=== PATIENT | male | born 1970 | race Caucasian/White ===

== ENCOUNTER 2022-06-14 07:05 | Day surgery (SDC) | payer OTHER ==
[~2022-06-14 07:05] MED LIST: Dextrose 5%-0.45% NaCl 1,000 ML IV SCH; Midazolam 1 MG/ML 2 ML SDV ONE; Sodium Chloride 0.9% 10 ML Syringe FLUSH PRN; Sodium Chloride 0.9% 10 ML Syringe FLUSH SCH; fentaNYL 100 MCG/2 ML SDV ONE
[2022-06-14] MEDS ORDERED: Midazolam 1 MG/ML 2 ML SDV IVPUSH ONE (07:06)
[2022-06-14] MEDS ORDERED: fentaNYL 100 MCG/2 ML SDV IVPUSH ONE (07:06)
[2022-06-14] MEDS ORDERED: fentaNYL 100 MCG/2 ML SDV IV ONE ×2 (07:16→08:16)
[2022-06-14] MEDS ORDERED: Midazolam 1 MG/ML 2 ML SDV IV ONE ×6 (08:17→08:24)
== END 2022-06-14 09:45 | disposition home or self-care (01) ==
LOC: DL.ENDO 07:05
PROVIDERS: ATTEND Internal Medicine Gastroenterology
DX: Z12.11 Encounter for screening for malignant neoplasm of colon (principal); R19.7 Diarrhea, unspecified; K76.89 Other specified diseases of liver; E66.09 Other obesity due to excess calories; Z68.33 Body mass index [BMI] 33.0-33.9, adult; Z48.815 Encounter for surgical aftercare following surgery on the digestive system
CPT/HCPCS: 45378; J2250; J3010; J7042